=== PATIENT | female | born 2000 | race Caucasian/White ===

== ENCOUNTER 2021-12-21 15:31 | Emergency (ER) | payer OTHER ==
[~2021-12-21] VITALS: Ht 165.1 cm; Wt 63.5 kg
[2021-12-21 15:35] VITALS: BP_SYST 108
[2021-12-21] MEDS ORDERED: CYCL10TA24 PO ×2 (16:37)
[2021-12-21] MEDS ORDERED: NAPR-1172 PO ×2 (16:37)
[2021-12-21] MEDS ORDERED: ACET-2634 PO (16:58)
== END 2021-12-21 17:05 | disposition home or self-care (01) ==
LOC: SED 15:31
DX: S29.012A Strain of muscle and tendon of back wall of thorax, initial encounter (principal); M54.6 Pain in thoracic spine; Z79.899 Other long term (current) drug therapy; X58.XXXA Exposure to other specified factors, initial encounter; Y93.89 Activity, other specified; Y92.89 Other specified places as the place of occurrence of the external cause; Y99.8 Other external cause status
CPT/HCPCS: 71046-TC; 99283